=== PATIENT | female | born 1970 | race Caucasian/White ===

== ENCOUNTER 2017-06-24 09:50 | Observation (INO) | payer OTHER ==
[~2017-06-24] VITALS: Ht 170.2 cm; Wt 125.0 kg
[~2017-06-24 09:50] MED LIST: NEXIUM 24HR20 M2 PO
[2017-06-24 12:58] LABS: BASOPHIL (%) 0.5 % (0-1); EOSINOPHIL (%) 0.9 % (0-5); EOSINOPHIL COUNT 0.1 K/uL (0-0.3); HEMATOCRIT 40.7 % (36.0-46.0); HEMOGLOBIN 13.9 G/DL (11.9-15.5); IMMATURE GRANULOCYTE (%) 0.3 % (0.0-0.7); LYMPHOCYTE (%) 19.8 % (15-42); LYMPHOCYTE COUNT 1.5 K/uL (1.0-2.8); MCH 32.5 PG (29.0-34.0); MCHC 34.2 G/DL (30.0-36.0); MCV 95.1 FL (83-99); MONOCYTE (%) 3.8 % (3-12); MONOCYTE COUNT 0.3 K/uL (0-0.8); NEUTROPHIL (%) 74.7 % (45-76); NEUTROPHIL COUNT 5.7 K/uL (1.8-6.4); PLATELET COUNT 190 K/uL (156-360); RBC DIS.WIDTH-CV 12.6 % (11.8-14.6); RBC DIS.WIDTH-SD 43.8 % (39-53); RED BLOOD COUNT 4.28 M/uL (3.80-5.20); WHITE BLOOD COUNT 7.6 K/uL (4.1-10.2)
[2017-06-24 13:04] LABS: INTER. NORMALIZED RATIO 1.1
[2017-06-24 13:11] LABS: CHLORIDE 111 mEq/L (99-109); POTASSIUM 4.3 mEq/L (3.7-5.4); SODIUM 142 mEq/L (136-147)
[2017-06-24 13:13] LABS: GLUCOSE 82 mg/dL (70-99)
[2017-06-24 13:17] LABS: CREATININE 0.7 mg/dL (0.6-1.3); GFR ESTIMATE (CALCULATED) > 59 mL/min/
[2017-06-24 13:18] LABS: UREA NITROGEN (BUN) 8 mg/dL (9-23)
[2017-06-24] MEDS ORDERED: DEPO-PROVER150 MG/ML IM (14:20)
[2017-06-24] MEDS ORDERED: IMITREX50 MG PO (14:20)
[2017-06-24] MEDS ORDERED: ADVIL200 MG PO (14:21)
[2017-06-24] MEDS ORDERED: EFFEXOR XR75 MG PO (14:21)
[2017-06-24] MEDS ORDERED: ADVIL COLD &1 TABLET PO (14:21)
[2017-06-24 20:20] VITALS: BP 127/76
[2017-06-25] VITALS (7 sets, daily range): BP systolic 110–151; BP diastolic 70–92
[2017-06-26 07:53] VITALS: BP 123/74
[2017-06-26] MEDS ORDERED: PERCOCET 5/31 TABLET PO (09:30)
[2017-06-26] MEDS ORDERED: ASPIRIN325 MG PO (09:30)
[2017-06-26] MEDS ORDERED: ADULT FOLDING1 EACH MC (09:32)
== END 2017-06-26 12:27 | disposition home or self-care (01) ==
LOC: EME 09:50 → EDOF 13:35 → 3EAST 13:35 → EDOF 13:35 → ENRESERV 13:59 → 3EAST 19:50
PROVIDERS: Emergency Medicine
DX: S82.842A Displaced bimalleolar fracture of left lower leg, initial encounter for closed fracture (principal); W00.0XXA Fall on same level due to ice and snow, initial encounter; E66.01 Morbid (severe) obesity due to excess calories; Z68.42 Body mass index [BMI] 45.0-49.9, adult; K21.9 Gastro-esophageal reflux disease without esophagitis; G43.909 Migraine, unspecified, not intractable, without status migrainosus
CPT/HCPCS: 71045; 73590; 73600; 73610; 76000; 80048; 85025; 85610; 93005; 99281; 99285; C1713; G0378; G8978 GP CI; G8979 GP CH; G8980 GP CI; J0131; J0330; J0690; J1100; J1644; J2250; J2270; J2405; J2795; J7120; S0020